=== PATIENT | female | born 1940 | race Caucasian/White ===

== ENCOUNTER 2016-11-23 07:15 | Inpatient (IN) ==
[~2016-11-23 07:15] MED LIST: ACETAMINOPHEN 500 MG TABLET PO SCH; CELECOXIB 200 MG CAPSULE PO SCH; PREGABALIN 75 MG CAPSULE PO SCH; ceFAZolin 1 GM VIAL IV SCH; oxyCODONE 10 MG TAB.ER.12H PO SCH
[2016-11-23] MEDS ORDERED: PROPOFOL 200 MG/20 ML VIAL IV ONE (09:30)
[2016-11-23] MEDS ORDERED: LIDOCAINE HCL/PF 100 MG/5 ML SYRINGE IV ONE (09:30)
[2016-11-23] MEDS ORDERED: DEXAMETHASONE 10 MG/ML VIAL IV ONE (09:30)
[2016-11-23] MEDS ORDERED: TRANEXAMIC ACID 1,000 MG/10 ML VIAL IV ONE ×2 (09:30→10:48)
[2016-11-23] MEDS ORDERED: SUCCINYLCHOLINE 20 MG/ML ML IV ONE (09:30)
[2016-11-23] MEDS ORDERED: MIDAZOLAM 2 MG/2 ML VIAL IV ONE (09:30)
[2016-11-23] MEDS ORDERED: KETAMINE 100 MG/ML ML IV ONE (09:30)
[2016-11-23] MEDS ORDERED: ONDANSETRON 4 MG/2 ML VIAL IV ONE (09:30)
[2016-11-23] MEDS ORDERED: fentaNYL 250 MCG/5 ML VIAL IV ONE (09:30)
[2016-11-23] MEDS ORDERED: HYDROmorphone 2 MG/ML SYRINGE IV ONE (09:30)
[2016-11-23] MEDS ORDERED: NALOXONE HCL 0.4 MG/ML VIAL IV PRN (10:25)
[2016-11-23] MEDS ORDERED: METHOCARBAMOL 1,000 MG/10 ML VIAL IV PRN (10:25)
[2016-11-23] MEDS ORDERED: MEPERIDINE 25 MG/ML SYRINGE IV PRN (10:25)
[2016-11-23] MEDS ORDERED: FLUMAZENIL 0.1 MG/ML ML IV PRN (10:25)
[2016-11-23] MEDS ORDERED: fentaNYL 100 MCG/2 ML VIAL IV PRN (10:25)
[2016-11-23] MEDS ORDERED: ePHEDrine 50 MG/ML AMPUL IV PRN (10:25)
[2016-11-23] MEDS ORDERED: BENZOCAINE/MENTHOL 1 LOZENGE PO PRN ×2 (10:25→10:48)
[2016-11-23] MEDS ORDERED: MEPERIDINE 50 MG/ML SYRINGE IM PRN (10:25)
[2016-11-23] MEDS ORDERED: IPRATROPIUM/ALBUTEROL 3 ML AMPUL.NEB NEB PRN (10:25)
[2016-11-23] MEDS ORDERED: LACTATED RINGERS 250 ML IV PRN (10:25)
[2016-11-23] MEDS ORDERED: HYDROmorphone 2 MG/ML SYRINGE IV PRN ×2 (10:25→10:48)
[2016-11-23] MEDS ORDERED: ONDANSETRON 4 MG/2 ML VIAL IV PRN ×2 (10:25→10:48)
[2016-11-23] MEDS ORDERED: diphenhydrAMINE 50 MG/ML VIAL IV PRN (10:25)
[2016-11-23] MEDS ORDERED: ACETAMINOPHEN 1,000 MG/100 ML BOTTLE IV SCH ×2 (10:30→12:00)
[2016-11-23] MEDS ORDERED: LACTATED RINGERS 1,000 ML IV SCH (10:30)
[2016-11-23] MEDS ORDERED: GENTAMICIN SULFATE 800 MG/20 ML VIAL IR ONE (10:31)
[2016-11-23] MEDS ORDERED: BISACODYL 10 MG SUPP.RECT PR PRN (10:48)
[2016-11-23] MEDS ORDERED: FLEETS ADULT ENEMA PR PRN (10:48)
[2016-11-23] MEDS ORDERED: MAGNESIUM HYDROXIDE 30 ML ORAL.SUSP PO PRN (10:48)
[2016-11-23] MEDS ORDERED: POLYETHYLENE GLYCOL 3350 17 GM PACKET PO PRN (10:48)
[2016-11-23] MEDS ORDERED: TEMAZEPAM 15 MG CAPSULE PO PRN (10:48)
--- NOTE | 2016-11-23 10:53 | Brief Operative Note ---
Date of procedure: 11/23/16 Pre-op diagnosis: Left hip djd severe Post-op diagnosis: same Procedure: Left VI Grafts/Implants: No Anesthesia: JANA Surgeon: Will Ponce Syrup Filterer: Elvis Hernandez Estimated blood loss (cc): 50 Specimens Removed/Pathology: none sent Condition: stable Disposition: PACU
--- NOTE | 2016-11-23 11:42 | Operative Note ---
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 PROCEDURE: Left total hip arthroplasty with a cemented stem. SURGEON: Will Ponce MD HORTICULTURALIST: Elvis Hernandez PA-C ANESTHESIA: General LMA anesthesia. COMPLICATIONS: None. ESTIMATED BLOOD LOSS: About 50 mL DESCRIPTION OF PROCEDURE: The patient was brought to the operating room and put to sleep with general LMA anesthesia. Patient was turned into a right lateral position on the operative table. Once positioned with Draon positioner, we confirmed the left leg as the operative site, confirming incision, x-rays and consent form. After being given preop antibiotics and tranexamic acid, the left leg was sterilely prepped and draped in the usual sterile fashion. Ioban was placed over the skin. We placed a superior posterior approach with a 4-inch incision. Through this, we identified the superior posterior capsule which was released with the piriformis obturator internus and dislocated the hip. We cut the neck length 30 mm from the center of hip rotation. Once cut, we then irrigated thoroughly. We then reamed up on the cup side to a 51 and implanted a 50 mm cementless cup with 20 degrees of anteversion and 40 degrees of inclination. We irrigated thoroughly, removed osteophytes anteriorly and we had removed the labrum. We then broached up on the femur with a size 4 broach and 30 mm neck length. This was reduced and the hip was very stable up to 90 degrees of internal rotation with flexion and adduction. We then took x-rays of the pelvis and AP pelvis during the surgery, demonstrated only slightly longer left hip than the right, well positioned cup. We then proceeded with removing the trials and cemented into place a size 5 cemented stem with a +2.5 ceramic neck length and a 36 mm head and cup liner. This was also stable throughout the full range of motion. We repaired the posterior capsule with #2 Ethibond, closed the fascial layer with #1 Stratafix and then closed the fascial layer with 0 Vicryl and 2-0 Vicryl and adhesive closure. The patient tolerated this well. There was no complication. Sterile bandage was applied. SHALONDA:evelin Job ID: [id number] Doc ID: [id number] Will Ponce MD
[2016-11-23] MEDS ORDERED: METOPROLOL TARTRATE 5 MG/5 ML VIAL IV ONE (11:53)
--- NOTE | 2016-11-23 12:18 | XRay Report ---
CLINICAL INFORMATION: Postop total hip prostheses COMPARISON: 09/28/2016 FINDINGS: Left total hip prostheses is anatomically aligned. Severe degenerative change in the right hip is seen-as before. Mild degenerative change in both SI joints. Soft tissue swelling gas seen in the surgical site as expected IMPRESSION: Negative Interpreted and Authenticated by: Med Perdomo 11/23/16
[2016-11-23] MEDS: 0.45 % SODIUM CHLORIDE 1,000 ML IV SCH ×2 (12:30→22:01)
[2016-11-23] MEDS: HYDROcodone/APAP 10/325MG TABLET PO PRN ×2 (13:32→18:27)
[2016-11-23] MEDS: 0.9 % SODIUM CHLORIDE 10 ML SYRINGE IV SCH ×2 (16:54→22:01)
[2016-11-23] MEDS: ceFAZolin 1 GM VIAL IV SCH (18:27)
[2016-11-23] MEDS: ATORVASTATIN 20 MG TABLET PO SCH (21:14)
[2016-11-23] MEDS: DOCUSATE SODIUM 100 MG CAPSULE PO SCH (21:15)
[2016-11-23] MEDS: SENNOSIDES 1 TABLET PO SCH (21:15)
[2016-11-23] MEDS: ASPIRIN 325 MG ENTERIC COATED TABLET PO SCH (21:15)
[2016-11-23] MEDS: KETOROLAC 15 MG/ML VIAL IV PRN (23:33)
[2016-11-24] MEDS: ceFAZolin 1 GM VIAL IV SCH (01:17)
[2016-11-24] MEDS: 0.9 % SODIUM CHLORIDE 10 ML SYRINGE IV SCH ×4 (02:30→21:09)
[2016-11-24] MEDS: HYDROcodone/APAP 10/325MG TABLET PO PRN ×3 (04:49→21:08)
[2016-11-24] MEDS: ASPIRIN 325 MG ENTERIC COATED TABLET PO SCH ×2 (08:39→20:14)
[2016-11-24] MEDS: CLOPIDOGREL 75 MG TABLET PO SCH (08:39)
[2016-11-24] MEDS: DOCUSATE SODIUM 100 MG CAPSULE PO SCH ×2 (08:39→20:14)
[2016-11-24] MEDS: OMEPRAZOLE 20 MG CAPSULE PO SCH (08:39)
[2016-11-24] MEDS: LISINOPRIL 5 MG TABLET PO SCH (08:39)
[2016-11-24] MEDS: ACETAMINOPHEN 325 MG TABLET PO PRN ×2 (08:45→20:14)
[2016-11-24] MEDS ORDERED: FLU VACC QS2017-18 36MOS UP/PF 60 MCG/0.5 ML SYRINGE IM ONE (10:00)
[2016-11-24] MEDS ORDERED: PNEUMOCOCCAL 23-VAL P-SAC VAC 0.5 ML VIAL IM ONE (10:00)
[2016-11-24] MEDS: 0.45 % SODIUM CHLORIDE 1,000 ML IV SCH (13:50)
--- NOTE | 2016-11-24 17:20 | Discharge Summary ---
Ortho Discharge - VI - Patient Instructions Diet: Regular Diet Activity: activity as tolerated, weight bearing as tolerated Total Hip Protocol: Follow activity instructions as provided by Physical Therapy. Dressing Care: May shower in 2 days - Problem Maintenance (1) Hx of total hip arthroplasty Status: Acute - Follow Up Plan Follow Up Appointments: Elvis Hernandez PA-C [Physician Bridge Design Engineer] - 12/08/16 1:10 pm Disposition: Home, Self-Care Prognosis: Good Rehab Potential: Good I certify that the patient requires SNF services: No Overall status at discharge: patient is progressing back to baseline - Orders For Discharge Prescriptions: Docusate Sodium [Colace] 100 mg PO BID #60 capsule HYDROcodone/APAP 10/325MG [[place] 10/325Mg] 1 - 2 tab PO Q4HP PRN #75 tablet PRN Reason: Pain
--- NOTE | 2016-11-24 17:20 | Orthopedic Progress Note ---
Subjective Patient information: Note initiated : 11/24/16 at 7:45 am Service Date, if different from initiated Date: [] Patient: Tori Bond 76 y/o F admitted on 11/23/16 for Left Total Hip Arthroplasty. Chief Complaint: [Pt is stable this morning on post operative day 1 without any significant concerns or complaints. Patients vital signs have remained stable. Patients dressing is dry and exhibits a grossly intact neurovascular and neuromotor exam. Patients 10 point ROS is otherwise negative. ] Objective Vital signs: Vital Signs Temp Pulse Resp BP Pulse Ox 11/24/16 04:00 97.6 F 84 12 143/80 96 11/24/16 00:00 98.1 F 77 12 125/68 96 11/23/16 20:33 96 11/23/16 20:00 97.6 F 78 12 126/70 97 11/23/16 18:00 92 11/23/16 16:00 94 11/23/16 15:51 97 F 18 106/69 94 11/23/16 15:00 113/74 90 11/23/16 14:00 121/83 94 11/23/16 13:30 111/67 95 11/23/16 13:00 117/74 94 11/23/16 12:45 112/73 94 11/23/16 12:42 98 11/23/16 12:30 133/84 93 11/23/16 12:15 135/83 94 11/23/16 12:03 97.4 F 92 H 15 132/77 92 11/23/16 11:48 110 H 16 130/74 97 11/23/16 11:43 117 H 17 122/74 95 11/23/16 11:38 116 H 19 136/77 98 11/23/16 11:33 118 H 19 124/74 96 11/23/16 11:28 123 H 18 112/63 97 11/23/16 11:23 116 H 18 106/57 97 11/23/16 11:18 97.2 F 112 H 14 103/52 98 11/23/16 07:59 97.3 F 18 161/96 97 Intake and Output 11/23/16 11/24/16 11/24/16 21:59 05:59 13:59 Intake Total 960 / 960 2274 / 2274 Output Total 1125 / 1125 1850 / 1850 Balance -165 / -165 424 / 424 Intake: IV 1399 / 1399 Sodium Chloride 0.45% 1, 1399 / 1399 000 ml @ 100 mls/hr IV . Q10H GWENDOLYN Rx#:[id number] Oral 960 / 960 875 / 875 Output: Urine Catheter Amount 550 / 550 Void Amount 575 / 575 1850 / 1850 Other: Meal Dinner Percent of Meal Consumed 100% # Voids 1 1 Weight 187 lb 8 oz Intake & Output: Intake & Output 11/23/16 11/24/16 11/24/16 21:59 05:59 13:59 Intake Total 960 / 960 2274 / 2274 Output Total 1125 / 1125 1850 / 1850 Balance -165 / -165 424 / 424 Weight 187 lb 8 oz Intake: IV 1399 / 1399 Sodium Chloride 0.45% 1, 1399 / 1399 000 ml @ 100 mls/hr IV . Q10H GWENDOLYN Rx#:[id number] Oral 960 / 960 875 / 875 Output: Urine Catheter Amount 550 / 550 Void Amount 575 / 575 1850 / 1850 Other: Meal Dinner Percent of Meal Consumed 100% # Voids 1 1 Incision: Yes healing Incision clean and dry: Yes Dressing: Yes clean, Yes dry Weight bearing status: full Neurological exam IM: Yes motor sensory intact, Yes neurovascular intact Extremities exam IM: Yes Foot pink and warm, Yes neurovascular intact - Labs CBC & BMP: 11/24/16 05:20 Labs: Orthopedic Labs 11/23/16 07:31 APTT 31 11/24/16 05:20 Hct 36.8 Assessment and Plan (1) Hx of total hip arthroplasty Patient has been educated regarding wound care and dressings, follow up recommendations, and medication use. We will f/u with the patient within 2-3 weeks for wound check. Status: Acute
[2016-11-24] MEDS: SENNOSIDES 1 TABLET PO SCH (20:14)
[2016-11-24] MEDS: ATORVASTATIN 20 MG TABLET PO SCH (20:17)
[2016-11-25] MEDS: ACETAMINOPHEN 325 MG TABLET PO PRN ×2 (01:44→19:02)
[2016-11-25] MEDS: HYDROcodone/APAP 10/325MG TABLET PO PRN ×2 (04:51→08:45)
[2016-11-25] MEDS: 0.9 % SODIUM CHLORIDE 10 ML SYRINGE IV SCH ×3 (04:53→20:11)
[2016-11-25] MEDS: OMEPRAZOLE 20 MG CAPSULE PO SCH (07:40)
[2016-11-25] MEDS: KETOROLAC 15 MG/ML VIAL IV PRN (07:52)
[2016-11-25] MEDS: ASPIRIN 325 MG ENTERIC COATED TABLET PO SCH ×2 (08:45→20:08)
[2016-11-25] MEDS: DOCUSATE SODIUM 100 MG CAPSULE PO SCH ×2 (08:45→20:15)
[2016-11-25] MEDS: LISINOPRIL 5 MG TABLET PO SCH (08:45)
[2016-11-25] MEDS: CLOPIDOGREL 75 MG TABLET PO SCH (08:45)
--- NOTE | 2016-11-25 12:32 | Orthopedic Progress Note ---
Subjective Patient information: Note initiated : 11/25/16 at 12:31 pm Service Date, if different from initiated Date: [] Patient: Tori Bond 76 y/o F admitted on 11/23/16 for Left Total Hip Arthroplasty. Chief Complaint: [confused with meds but pain is minimal Objective Vital signs: Vital Signs Temp Pulse Resp BP Pulse Ox 11/25/16 11:32 98.1 F 16 145/89 94 11/25/16 07:07 98.6 F 85 20 152/83 94 11/25/16 04:45 97.6 F 84 12 181/76 94 11/25/16 00:00 98.3 F 102 H 12 148/75 93 11/24/16 20:00 98.5 F 100 H 12 151/74 94 11/24/16 16:08 97.8 F 61 15 146/82 96 Intake and Output 11/24/16 11/25/16 11/25/16 21:59 05:59 13:59 Intake Total 1040 / 1040 100 / 100 400 / 400 Output Total 650 / 650 Balance 390 / 390 100 / 100 400 / 400 Intake: Oral 1040 / 1040 100 / 100 400 / 400 Output: Void Amount 650 / 650 Other: Meal Dinner Breakfast Percent of Meal Consumed 75% 50% Feeding Ability Assist with Tray Set Up # Voids 1 1 Weight 185 lb Intake & Output: Intake & Output 11/24/16 11/25/16 11/25/16 21:59 05:59 13:59 Intake Total 1040 / 1040 100 / 100 400 / 400 Output Total 650 / 650 Balance 390 / 390 100 / 100 400 / 400 Weight 185 lb Intake: Oral 1040 / 1040 100 / 100 400 / 400 Output: Void Amount 650 / 650 Other: Meal Dinner Breakfast Percent of Meal Consumed 75% 50% Feeding Ability Assist with Tray Set Up # Voids 1 1 Incision: Yes healing Incision clean and dry: Yes Dressing: Yes clean Weight bearing status: full Neurological exam IM: Yes altered, Yes neurovascular intact Extremities exam IM: Yes Foot pink and warm, Yes neurovascular intact - Labs CBC & BMP: 11/24/16 05:20 Labs: Orthopedic Labs 11/23/16 07:31 APTT 31 11/24/16 05:20 Hct 36.8
--- NOTE | 2016-11-25 12:34 | Discharge Summary ---
Ortho Discharge - VI - Patient Instructions Diet: Regular Diet Activity: activity as tolerated, weight bearing as tolerated Total Hip Protocol: Follow activity instructions as provided by Physical Therapy. Dressing Care: [place]ucho Ag - leave on for 5 days - Follow Up Plan Follow Up Appointments: Elvis Hernandez PA-C [Physician Foreclosure Specialist] - 12/08/16 1:10 pm Disposition: Xfer SNF Prognosis: Good Rehab Potential: Good I certify that the patient requires SNF services: Yes Overall status at discharge: patient is progressing back to baseline - Orders For Discharge Prescriptions: Docusate Sodium [Colace] 100 mg PO BID #60 capsule HYDROcodone/APAP 10/325MG [[place] 10/325Mg] 1 - 2 tab PO Q4HP PRN #75 tablet PRN Reason: Pain Additional Discharge Orders: Physical Therapy at Discharge - VI Location: Determined By Patient Toilet Riser Discharge Order Location: Determined By Patient Walker Location: Determined By Patient
[2016-11-25] MEDS: ATORVASTATIN 20 MG TABLET PO SCH (20:08)
[2016-11-25] MEDS: SENNOSIDES 1 TABLET PO SCH (20:15)
[2016-11-26] MEDS: ACETAMINOPHEN 325 MG TABLET PO PRN ×2 (00:50→07:57)
[2016-11-26] MEDS: 0.9 % SODIUM CHLORIDE 10 ML SYRINGE IV SCH (05:45)
[2016-11-26] MEDS ORDERED: FLU VACC QS2017-18 36MOS UP/PF 60 MCG/0.5 ML SYRINGE IM ONE (06:45)
[2016-11-26] MEDS ORDERED: PNEUMOCOCCAL 23-VAL P-SAC VAC 0.5 ML VIAL IM ONE (06:45)
[2016-11-26] MEDS: OMEPRAZOLE 20 MG CAPSULE PO SCH (07:57)
[2016-11-26] MEDS: CLOPIDOGREL 75 MG TABLET PO SCH (09:06)
[2016-11-26] MEDS: LISINOPRIL 5 MG TABLET PO SCH (09:06)
[2016-11-26] MEDS: DOCUSATE SODIUM 100 MG CAPSULE PO SCH (09:06)
[2016-11-26] MEDS: ASPIRIN 325 MG ENTERIC COATED TABLET PO SCH (09:06)
== END 2016-11-26 10:30 | DRG 470 ==
LOC: MEDSUR 07:15
PROVIDERS: ADMIT Orthopaedic Surgery; ATTEND Orthopaedic Surgery